=== PATIENT | male | born 1970 | race Caucasian/White ===

== ENCOUNTER 2017-04-21 12:31 | Emergency (ER) | payer BC ==
[2017-04-21] MEDS ORDERED: KETOROLAC 30 MG/ML VIAL (J1885) IV ONE (14:45)
--- NOTE | 2017-04-21 15:56 | REP ---
LUMBAR SPINE, FIVE VIEWS: HISTORY: Pain. There is no acute fracture or subluxation. The L1-2 through L4-5 intervertebral discs are decreased in height consistent with disc degeneration. Osteophytes are present on L4 and L5. The facet joints are normal in appearance. IMPRESSION: Degenerative change as described above. Signed by Arvind Vitale MD 04/21/2017 04:01 P
[2017-04-21] MEDS ORDERED: PROMETHAZINE INJ 25 MG/ML VIAL (J2550) IV ONE (16:00)
[2017-04-21] MEDS ORDERED: MORPHINE 4 MG/ML 1ML SYRINGE IV ONE ×2 (16:00→17:00)
--- NOTE | 2017-04-21 19:50 | REPUSA ---
MRI of the lumbar spine without contrast Clinical statement: Pain. Technique: Multiecho multiplanar MRI images of the lumbar spine were obtained without administration of contrast. No comparison is available. Findings: The lumbar vertebral bodies are in satisfactory position and alignment. No fractures or dis locations are demonstrated. Normal heterogeneous bone marrow signal is noted. No osseous tumors are s een. The intervertebral disc heights are narrowed at all levels but L5/S1, with loss of disc height a t all of these levels as well. The filum terminale and conus medullaris appear unremarkable. The spin al cord demonstrates normal signal and contour. The surrounding soft tissues are within normal limits . The L1/L2, L2/L3 and L5/S1 disc levels are unremarkable. At L3/L4, there is a broad disc osteophyte complex and disc bulge. The disc bulge measures 3 mm in AP diameter. There is no evidence of central canal stenosis. There is mild bilateral neural foraminal n arrowing. At L4/L5, there is a broad disc osteophyte complex and disc bulge, with small right paracentral disc protrusion. The disc bulge measures 4 mm in AP diameter. There is no evidence of central canal stenos is. There is mild bilateral neural foraminal narrowing. Impression: 1. Multilevel degenerative disc disease as described. 2. Small disc osteophyte complexes and disc bulges at L3/L4 and L4/L5. Small right paracentral disc p rotrusion at L4/L5. There is no evidence of central canal stenosis. Mild bilateral neural foraminal n arrowing is noted at these levels. A call will be placed by our ring cutter lathe operator to the physician regarding these findings.
[2017-04-21] MEDS ORDERED: TRAM50TA2 PO (20:00)
[2017-04-21] MEDS ORDERED: HYDROmorphone HCL 1 MG/ML SYRINGE (J1170) IV ONE (20:15)
[2017-04-21] MEDS ORDERED: NORCO 5/325MG TABLET (BULK FOR ED) PO ONE (20:30)
[2017-04-21 20:41] VITALS: BP 108/62
[2017-04-21] MEDS ORDERED: ONDANSETRON 4 MG ORAL DISINTEGRATING TAB (S0181) PO ONE (20:45)
== END 2017-04-21 20:42 | disposition home or self-care (01) ==
LOC: M ED 12:31
DX: M51.36 Other intervertebral disc degeneration, lumbar region (principal); Z88.0 Allergy status to penicillin
CPT/HCPCS: 72110; 72148; 96374; 96375; 96376; 99284; J1170; J1885; J3360

== ENCOUNTER → 2020-05-04 | Emergency (ER) | payer BC ==
[~2020-05-04] MED LIST: BOOSTRIX/ADACEL VACCINE (DIPHTH/PERTUSS/ACELL/TETANUS) 0.5ML SYR ONE; BUPIVACAINE HCL 0.5% 10ML VIAL As Ordered ONE; BUPIVACAINE HCL 0.5% 10ML VIAL ONE; LIDOCAINE W/EPINEPHRINE 1% 20ML VIAL As Ordered ONE; LIDOCAINE W/EPINEPHRINE 1% 20ML VIAL ONE; ONDANSETRON 4 MG ORAL DISINTEGRATING TAB ONE; TRAM50TA2 PO; ceFAZolin 1GM VIAL (J0690 PER 500MG) ONE
== END | disposition home or self-care (01) ==
LOC: M ED 12:41
DX: S62.621B Displaced fracture of middle phalanx of left index finger, initial encounter for open fracture (principal); Y92.9 Unspecified place or not applicable; Y93.9 Activity, unspecified; Y99.9 Unspecified external cause status
CPT/HCPCS: 12002; 73140; 90471; 90715; 99283; J0690; Q0162